=== PATIENT | male | born 1935 | race Caucasian/White ===

== ENCOUNTER → 2022-04-09 | Outpatient (CLI) | payer MEDICARE ==
[~2022-04-09] MED LIST: PROHANCE 279.3MG/ML 15ML VIAL As Ordered ONE; PROHANCE 279.3MG/ML 5ML VIAL As Ordered ONE
== END ==
LOC: M RAD 13:20
PROVIDERS: ATTEND Internal Medicine Cardiovascular Disease
DX: R42 Dizziness and giddiness (principal); I65.23 Occlusion and stenosis of bilateral carotid arteries
CPT/HCPCS: 70549; A9576

== ENCOUNTER 2022-11-16 10:44 | Inpatient (IN) | payer MEDICARE ==
[~2022-11-16] VITALS: Ht 165.1 cm; Wt 66.4 kg
[2022-11-16] MEDS ORDERED: ASPIRIN 81MG CHEW TABLET PO ONE (11:20)
[2022-11-16] MEDS ORDERED: NITROGLYCERIN 0.4MG SUBL TABLET SL PRN (11:20)
[2022-11-16 11:22] LABS: BASO # 0.1 10^3/uL (0.0-0.2); BASO % 1.1 % (0.0-1.0); EOS # 0.2 10^3/uL (0.0-0.5); EOS % 2.8 % (0.0-3.0); HEMATOCRIT 32.8 % (42.0-52.0); HEMOGLOBIN 10.9 g/dl (13.5-17.5); LYMPH # 0.8 10^3/uL (1.5-5.0); LYMPH % 12.2 % (24.0-44.0); MEAN CORPUSCULAR HEMOGLOBIN 30.9 pg (27.0-33.0); MEAN CORPUSCULAR HGB CONC 33.2 g/dl (32.0-36.5); MEAN CORPUSCULAR VOLUME 92.9 fl (80.0-96.0); MONO # 0.5 10^3/uL (0.0-0.8); MONO % 8.4 % (2.0-8.0); NEUTROPHILS # 4.8 10^3/uL (1.5-8.5); NEUTROPHILS % 75.2 % (36.0-66.0); PLATELET COUNT, AUTOMATED 174 10^3/uL (150-450); RED BLOOD COUNT 3.53 10^6/uL (4.30-6.10); WHITE BLOOD COUNT 6.4 10^3/uL (4.0-10.0)
[2022-11-16 11:32] LABS: INR 0.96
[2022-11-16 11:33] LABS: PARTIAL THROMBOPLASTIN TIME 26.8 SECONDS (24.8-34.2)
[2022-11-16 11:46] LABS: LIPASE 25 U/L (12-53)
[2022-11-16 11:48] LABS: BILIRUBIN,DIRECT 0.3 MG/DL (<0.4)
[2022-11-16 11:49] LABS: ALBUMIN 3.2 G/DL (3.2-5.2); ALKALINE PHOSPHATASE 71 U/L (46-116); ALT/SGPT 17 U/L (7.0-40); AST/SGOT 18 U/L (<34); BILIRUBIN,TOTAL 0.9 MG/DL (0.3-1.2); BLOOD UREA NITROGEN 24 MG/DL (9-23); CALCIUM LEVEL 8.6 MG/DL (8.3-10.6); CARBON DIOXIDE LEVEL 28 MMOL/L (20-31); CHLORIDE LEVEL 105 MMOL/L (98-107); CK-MB VALUE MASS < 1.0 NG/ML (<3.6); CPK CREATINE PHOSPHOKINASE 55 U/L (46-171); CREATININE FOR GFR 0.99 MG/DL (0.70-1.30); GLOMERULAR FILTRATION RATE > 60.0 (>35); GLUCOSE, FASTING 169 MG/DL (74-106); MB/CK RELATIVE INDEX 1.81 (< OR =4); POTASSIUM SERUM 4.4 MMOL/L (3.5-5.1); SODIUM LEVEL 139 MMOL/L (136-145); TOTAL PROTEIN 6.2 G/DL (5.7-8.2)
[2022-11-16 11:50] LABS: THYROID STIMULATING HORMONE 4.557 uIU/ML (0.55-4.78)
[2022-11-16 11:51] LABS: FREE T4 1.19 NG/DL (0.89-1.76)
[2022-11-16 12:03] LABS: RSV AMPLIFICATION NEGATIVE (NEGATIVE)
[2022-11-16 12:47] LABS: CK-MB VALUE MASS < 1.0 NG/ML (<3.6)
[2022-11-16 12:48] LABS: CPK CREATINE PHOSPHOKINASE 61 U/L (46-171); MB/CK RELATIVE INDEX 1.63 (< OR =4)
[2022-11-16] MEDS ORDERED: ATOR1TAB19 PO (14:19)
[2022-11-16] MEDS ORDERED: SERT25TA21 PO (14:19)
[2022-11-16] MEDS ORDERED: INCR1INH INH (14:19)
[2022-11-16] MEDS ORDERED: OMEP40CA5 PO (14:19)
[2022-11-16] MEDS ORDERED: LOSA50TA28 PO (14:19)
[2022-11-16] MEDS ORDERED: ALBU8.5H INH (14:19)
[2022-11-16] MEDS ORDERED: IBUP-1114 PO (14:19)
[2022-11-16] MEDS ORDERED: AMLO1TAB24 PO (14:19)
[2022-11-16] MEDS ORDERED: HOME MED LIST COMPLETE! XX SCH (14:20)
[2022-11-16] MEDS ORDERED: LR 1,000 ML IV SCH (15:00)
[2022-11-16] MEDS ORDERED: ALBUTEROL 90 MCG/ACT 8GM HFA INHALER INH PRN (15:10)
[2022-11-16] MEDS: SERTRALINE HCL 25 MG TABLET PO SCH (15:53)
[2022-11-16] MEDS: ATORVASTATIN 10 MG TAB PO SCH (15:54)
[2022-11-16] MEDS ORDERED: ISOVUE-370 76% 100ML VIAL As Ordered ONE (16:04)
[2022-11-16 16:45] VITALS: BP 139/96
[2022-11-16 19:25] VITALS: BP 134/64
[2022-11-16] MEDS: amLODIPine 5 MG TAB PO SCH (21:33)
[2022-11-16] MEDS: HEPARIN SOD (PORCINE) 5000UNITS/ML 1ML VIAL/SYRINGE SC SCH (21:33)
[2022-11-16] MEDS: IBUPROFEN 400MG TAB PO PRN (21:33)
[2022-11-17 04:00] VITALS: BP 125/60
[2022-11-17] MEDS: HEPARIN SOD (PORCINE) 5000UNITS/ML 1ML VIAL/SYRINGE SC SCH ×3 (05:42→21:07)
[2022-11-17 06:41] LABS: ALBUMIN 2.8 G/DL (3.2-5.2); ALKALINE PHOSPHATASE 66 U/L (46-116); ALT/SGPT 16 U/L (7.0-40); AST/SGOT 18 U/L (<34); BILIRUBIN,TOTAL 0.7 MG/DL (0.3-1.2); BLOOD UREA NITROGEN 24 MG/DL (9-23); CALCIUM LEVEL 8.4 MG/DL (8.3-10.6); CARBON DIOXIDE LEVEL 27 MMOL/L (20-31); CHLORIDE LEVEL 106 MMOL/L (98-107); CREATININE FOR GFR 0.86 MG/DL (0.70-1.30); GLOMERULAR FILTRATION RATE > 60.0 (>35); GLUCOSE, FASTING 130 MG/DL (74-106); POTASSIUM SERUM 4.1 MMOL/L (3.5-5.1); SODIUM LEVEL 138 MMOL/L (136-145); TOTAL PROTEIN 5.6 G/DL (5.7-8.2)
[2022-11-17 07:32] LABS: BASO # 0.1 10^3/uL (0.0-0.2); BASO % 1.7 % (0.0-1.0); EOS # 0.4 10^3/uL (0.0-0.5); EOS % 7.6 % (0.0-3.0); HEMATOCRIT 29.1 % (42.0-52.0); HEMOGLOBIN 9.6 g/dl (13.5-17.5); LYMPH # 1.2 10^3/uL (1.5-5.0); LYMPH % 24.6 % (24.0-44.0); MEAN CORPUSCULAR HEMOGLOBIN 30.5 pg (27.0-33.0); MEAN CORPUSCULAR VOLUME 92.4 fl (80.0-96.0); MONO # 0.6 10^3/uL (0.0-0.8); MONO % 12.2 % (2.0-8.0); NEUTROPHILS # 2.6 10^3/uL (1.5-8.5); NEUTROPHILS % 53.7 % (36.0-66.0); PLATELET COUNT, AUTOMATED 163 10^3/uL (150-450); RED BLOOD COUNT 3.15 10^6/uL (4.30-6.10); WHITE BLOOD COUNT 4.8 10^3/uL (4.0-10.0)
[2022-11-17 08:00] VITALS: BP 143/65
[2022-11-17] MEDS: TIOTROPIUM INHALER/CAPSULE (SPIRIVA) INH SCH (08:01)
[2022-11-17] MEDS: SERTRALINE HCL 25 MG TABLET PO SCH (08:34)
[2022-11-17] MEDS: ATORVASTATIN 10 MG TAB PO SCH (08:34)
[2022-11-17] MEDS: ASPIRIN 81MG CHEW TABLET PO SCH (08:34)
[2022-11-17 12:00] VITALS: BP_SYST 136; BP_SYST 138; BP_SYST 152; BP_DIAS 63; BP_DIAS 66; BP_DIAS 68
[2022-11-17 16:00] VITALS: BP 143/55
[2022-11-17 19:45] VITALS: BP 154/64
[2022-11-17] MEDS: amLODIPine 5 MG TAB PO SCH (21:09)
[2022-11-17] MEDS: IBUPROFEN 400MG TAB PO PRN (21:10)
[2022-11-18] VITALS (8 sets, daily range): BP systolic 109–140; BP diastolic 52–86
[2022-11-18 04:54] LABS: BASO # 0.1 10^3/uL (0.0-0.2); BASO % 1.9 % (0.0-1.0); EOS # 0.4 10^3/uL (0.0-0.5); EOS % 8.1 % (0.0-3.0); HEMATOCRIT 30.8 % (42.0-52.0); HEMOGLOBIN 10.3 g/dl (13.5-17.5); LYMPH # 1.4 10^3/uL (1.5-5.0); LYMPH % 28.3 % (24.0-44.0); MEAN CORPUSCULAR HEMOGLOBIN 30.8 pg (27.0-33.0); MEAN CORPUSCULAR HGB CONC 33.4 g/dl (32.0-36.5); MEAN CORPUSCULAR VOLUME 92.2 fl (80.0-96.0); MONO # 0.5 10^3/uL (0.0-0.8); MONO % 11.2 % (2.0-8.0); NEUTROPHILS # 2.4 10^3/uL (1.5-8.5); NEUTROPHILS % 50.3 % (36.0-66.0); PLATELET COUNT, AUTOMATED 181 10^3/uL (150-450); RED BLOOD COUNT 3.34 10^6/uL (4.30-6.10); WHITE BLOOD COUNT 4.8 10^3/uL (4.0-10.0)
[2022-11-18] MEDS: HEPARIN SOD (PORCINE) 5000UNITS/ML 1ML VIAL/SYRINGE SC SCH ×3 (05:01→21:01)
[2022-11-18 05:17] LABS: BLOOD UREA NITROGEN 24 MG/DL (9-23); CALCIUM LEVEL 8.6 MG/DL (8.3-10.6); CARBON DIOXIDE LEVEL 27 MMOL/L (20-31); CHLORIDE LEVEL 107 MMOL/L (98-107); CREATININE FOR GFR 0.86 MG/DL (0.70-1.30); GLOMERULAR FILTRATION RATE > 60.0 (>35); GLUCOSE, FASTING 123 MG/DL (74-106); SODIUM LEVEL 141 MMOL/L (136-145)
[2022-11-18] MEDS: ASPIRIN 81MG CHEW TABLET PO SCH (09:01)
[2022-11-18] MEDS: SERTRALINE HCL 25 MG TABLET PO SCH (09:01)
[2022-11-18] MEDS: ATORVASTATIN 10 MG TAB PO SCH (09:01)
[2022-11-18] MEDS: TIOTROPIUM INHALER/CAPSULE (SPIRIVA) INH SCH (09:27)
[2022-11-18] MEDS: IBUPROFEN 400MG TAB PO PRN (20:57)
[2022-11-18] MEDS: amLODIPine 5 MG TAB PO SCH (20:58)
[2022-11-19 04:47] LABS: MEAN CORPUSCULAR HEMOGLOBIN 30.6 pg (27.0-33.0); MEAN CORPUSCULAR HGB CONC 33.3 g/dl (32.0-36.5); MEAN CORPUSCULAR VOLUME 91.7 fl (80.0-96.0); PLATELET COUNT, AUTOMATED 178 10^3/uL (150-450); RED BLOOD COUNT 3.27 10^6/uL (4.30-6.10); WHITE BLOOD COUNT 5.3 10^3/uL (4.0-10.0)
[2022-11-19] MEDS: HEPARIN SOD (PORCINE) 5000UNITS/ML 1ML VIAL/SYRINGE SC SCH ×3 (05:17→21:09)
[2022-11-19 05:20] LABS: ALBUMIN 2.8 G/DL (3.2-5.2); ALKALINE PHOSPHATASE 65 U/L (46-116); ALT/SGPT 14 U/L (7.0-40); AST/SGOT 15 U/L (<34); BILIRUBIN,TOTAL 0.7 MG/DL (0.3-1.2); BLOOD UREA NITROGEN 31 MG/DL (9-23); CALCIUM LEVEL 8.7 MG/DL (8.3-10.6); CARBON DIOXIDE LEVEL 26 MMOL/L (20-31); CHLORIDE LEVEL 106 MMOL/L (98-107); CREATININE FOR GFR 0.88 MG/DL (0.70-1.30); GLOMERULAR FILTRATION RATE > 60.0 (>35); GLUCOSE, FASTING 126 MG/DL (74-106); SODIUM LEVEL 140 MMOL/L (136-145); TOTAL PROTEIN 5.3 G/DL (5.7-8.2)
[2022-11-19 07:47] VITALS: BP 118/56
[2022-11-19] MEDS: TIOTROPIUM INHALER/CAPSULE (SPIRIVA) INH SCH (08:16)
[2022-11-19] MEDS: SERTRALINE HCL 25 MG TABLET PO SCH (08:44)
[2022-11-19] MEDS: ASPIRIN 81MG CHEW TABLET PO SCH (08:44)
[2022-11-19] MEDS: ATORVASTATIN 10 MG TAB PO SCH (08:44)
[2022-11-19] MEDS: amLODIPine 5 MG TAB PO SCH (20:32)
[2022-11-19 20:36] VITALS: BP 134/72
[2022-11-20] MEDS: HEPARIN SOD (PORCINE) 5000UNITS/ML 1ML VIAL/SYRINGE SC SCH ×3 (05:42→21:07)
[2022-11-20 07:42] VITALS: BP 121/58
[2022-11-20] MEDS: TIOTROPIUM INHALER/CAPSULE (SPIRIVA) INH SCH (08:06)
[2022-11-20] MEDS: SERTRALINE HCL 25 MG TABLET PO SCH (09:05)
[2022-11-20] MEDS: ASPIRIN 81MG CHEW TABLET PO SCH (09:05)
[2022-11-20] MEDS: ATORVASTATIN 10 MG TAB PO SCH (09:06)
[2022-11-20] MEDS ORDERED: ASPI81CH8 PO (10:30)
[2022-11-20] MEDS ORDERED: APAP325T4 PO (10:30)
[2022-11-20] MEDS: IBUPROFEN 400MG TAB PO PRN (17:35)
[2022-11-20 20:22] VITALS: BP 156/67
[2022-11-20 20:44] VITALS: BP 156/67
[2022-11-20] MEDS: amLODIPine 5 MG TAB PO SCH (20:44)
[2022-11-21] MEDS: HEPARIN SOD (PORCINE) 5000UNITS/ML 1ML VIAL/SYRINGE SC SCH (05:36)
[2022-11-21] MEDS: TIOTROPIUM INHALER/CAPSULE (SPIRIVA) INH SCH (07:43)
[2022-11-21 07:47] VITALS: BP 126/62
[2022-11-21] MEDS: ASPIRIN 81MG CHEW TABLET PO SCH (09:04)
[2022-11-21] MEDS: SERTRALINE HCL 25 MG TABLET PO SCH (09:04)
[2022-11-21] MEDS: IBUPROFEN 400MG TAB PO PRN (09:05)
[2022-11-21] MEDS: ATORVASTATIN 10 MG TAB PO SCH (09:05)
== END 2022-11-21 11:31 | DRG 312 ==
LOC: M ED 10:44 → EDBD 10:44 → M ED INP 14:43 → ENRESERV 15:32 → M PCU 16:42
PROVIDERS: ADMIT Internal Medicine; ATTEND Internal Medicine
DX: I95.1 Orthostatic hypotension (principal); I50.32 Chronic diastolic (congestive) heart failure; S42.292A Other displaced fracture of upper end of left humerus, initial encounter for closed fracture; I25.10 Atherosclerotic heart disease of native coronary artery without angina pectoris; I25.2 Old myocardial infarction; I11.0 Hypertensive heart disease with heart failure; I44.7 Left bundle-branch block, unspecified; E78.5 Hyperlipidemia, unspecified; J44.9 Chronic obstructive pulmonary disease, unspecified; E11.9 Type 2 diabetes mellitus without complications; F03.90 Unspecified dementia, unspecified severity, without behavioral disturbance, psychotic disturbance, mood disturbance, and anxiety; R42 Dizziness and giddiness; I65.23 Occlusion and stenosis of bilateral carotid arteries; Z79.82 Long term (current) use of aspirin; Z79.899 Other long term (current) drug therapy; Z91.018 Allergy to other foods; W18.09XA Striking against other object with subsequent fall, initial encounter; Y92.009 Unspecified place in unspecified non-institutional (private) residence as the place of occurrence of the external cause; Y93.9 Activity, unspecified; Y99.8 Other external cause status

== ENCOUNTER → 2022-12-29 | Outpatient (CLI) | payer MEDICARE ==
[~2022-12-29] MED LIST changes: +ALBU8.5H INH; +AMLO1TAB24 PO; +APAP325T4 PO; +ASPI81CH8 PO; +ATOR1TAB19 PO; +IBUP-1114 PO; +INCR1INH INH; +LOSA50TA28 PO; +OMEP40CA5 PO; -PROHANCE 279.3MG/ML 15ML VIAL As Ordered ONE; -PROHANCE 279.3MG/ML 5ML VIAL As Ordered ONE; +SERT25TA21 PO
== END ==
LOC: M SOG 08:48
PROVIDERS: ATTEND Physician Assistant
DX: S42.202D Unspecified fracture of upper end of left humerus, subsequent encounter for fracture with routine healing (principal)

== ENCOUNTER → 2023-01-29 | Outpatient (CLI) | payer MEDICARE | LOC: M SOG 07:59 | PROVIDERS: ATTEND Physician Assistant | DX: S42.202D Unspecified fracture of upper end of left humerus, subsequent encounter for fracture with routine healing (principal); M19.012 Primary osteoarthritis, left shoulder ==